=== PATIENT | female | born 1995 | race African-American/Black ===

== ENCOUNTER 2024-02-01 13:33 | Emergency (ER) | payer OTHER ==
[~2024-02-01] VITALS: Ht 165.1 cm; Wt 56.8 kg
[2024-02-01 13:41] VITALS: BP 126/84; PULSE 98; RESP 18; TEMP 97.9; O2SAT 99
== END 2024-02-01 15:48 | disposition left against medical advice (07) ==
LOC: EMS 13:46
DX: F43.10 Post-traumatic stress disorder, unspecified (principal); Z53.21 Procedure and treatment not carried out due to patient leaving prior to being seen by health care provider